=== PATIENT | male | born 1960 | race African-American/Black ===

== ENCOUNTER 2016-03-11 23:59 | Emergency (ER) | payer BC ==
[~2016-03-11] VITALS: Wt 82.0 kg
[~2016-03-11 23:59] MED LIST: AMLO2.5T78 PO; CIPR500T4 PO; CYCL-319 PO; LOSA25TA5 PO; NAPR-260 PO
[2016-03-12] MEDS ORDERED: LOSA25TA5 PO (01:06)
[2016-03-12] MEDS ORDERED: AMLO-145 PO (01:06)
--- NOTE | 2016-03-12 01:13 | ERD ---
ER Documentation Chief Complaint Date/Time DATE: 03/12/16 TIME: 01:11 Chief Complaint headache 3 days. pt wants refill on b/p meds HPI 56-year-old man presents with intermittent headaches with recent elevation in blood pressure. He does have a history of hypertension and ran out of his antihypertensive medications. Patient denies chest pain or shortness of breath , no slurred speech, no weakness in his arms or legs, no neck pain or stiffness. ROS All systems reviewed and are negative except as per history of present illness. Medications Home Meds Active Scripts Amlodipine Besylate* (Amlodipine Besylate*) 5 Mg Tablet, 5 MG PO DAILY, #30 TAB Prov:RAFIQ ABDALLA MD 03/12/16 Losartan Potassium* (Losartan Potassium*) 25 Mg Tablet, 25 MG PO DAILY, #30 TAB Prov:RAFIQ ABDALLA MD 03/12/16 Cyclobenzaprine Hcl* (Cyclobenzaprine Hcl*) 10 Mg Tablet, 10 MG PO TID, #10 TAB Prov:Karyn Collins PA-C 12/16/15 Naproxen* (Naprosyn*) 500 Mg Tablet, 500 MG PO BID Y for PAIN AND/OR INFLAMMATION, #30 TAB Prov:Karyn Collins PA-C 12/16/15 Ciprofloxacin Hcl* (Ciprofloxacin Hcl*) 500 Mg Tablet, 500 MG PO BID for 10 Days , TAB Prov:MANOHAR GASCA PA-C 09/23/15 Amlodipine Besylate* (Amlodipine Besylate*) 2.5 Mg Tablet, 5 MG PO DAILY, #30 TAB Prov:JORDNY COOK MD 05/19/15 Losartan Potassium* (Losartan Potassium*) 25 Mg Tablet, 25 MG PO DAILY, #30 TAB Prov:JORDYN COOK MD 05/19/15 Allergies Allergies: Coded Allergies: No Known Allergy (Unverified , 06/10/15) PMhx/Soc Hypertension History of Surgery: Yes (pacemaker) Anesthesia Reaction: No Hx Neurological Disorder: No Hx Respiratory Disorders: No Hx Cardiac Disorders: Yes (high blood pressure) Hx Psychiatric Problems: No Hx Miscellaneous Medical Probl: Yes (borderline diabetes) Hx Alcohol Use: No Hx Substance Use: No Hx Tobacco Use: No FmHx Family History: No diabetes Physical Exam Vitals Vital Signs Date Time Temp Pulse Resp B/P Pulse Ox O2 Delivery O2 Flow Rate FiO2 03/12/16 00:41 98.3 63 18 126/83 98 Physical Exam GENERAL: Well-developed, well-nourished, well-hydrated, in no apparent distress , looks nontoxic in appearance HEENT: Moist mucous membranes, pink conjunctiva, no cervical spine tenderness or step-off deformities, no goiter, no jaundice or icterus, extraocular movements intact without pain. No submandibular induration, and no pharyngeal erythema NEURO: Alert and oriented 3, cranial nerves II through XII intact bilaterally, pupils equal round reactive to light, no focal deficits or facial asymmetry, sensation intact distally Strength 5/5 in upper and lower extremities bilaterally CARDIAC: Regular rate and rhythm, no murmurs rubs or gallops LUNGS: Clear bilaterally no wheezing crackles or stridor ABDOMEN: Soft nontender, no guarding, no rigidity, no rebound, no psoas sign no obturator sign. Normoactive bowel sounds SKIN: Warm and dry to touch, no abrasions, contusions, or hematomas, no lacerations, no ecchymosis, no target lesions, and without ulcers EXTREMITIES: No clubbing cyanosis or edema, calves are bilaterally symmetrical, no Homans sign, no popliteal cord sign. Distal pulses equal and bilateral PSYCH: Normal affect without agitation or irritability Procedures/MDM Patient has a history of hypertension is here for medication refill. Differential diagnoses considered, included but not limited to acute coronary syndrome, pulmonary embolism, aortic dissection, abdominal aortic aneurysm, sepsis, stroke, meningitis, encephalitis, pneumonia, appendicitis, cholecystitis , bowel obstruction, pyelonephritis, nephrolithiasis, cystitis, as well as metabolic, hematologic, and electrolyte abnormalities. As well as abscess, cellulitis, fractures, and dislocations. Patient feels much better at this time, and vital signs are normal, symptoms have improved. I did give strict instructions to return to the ED if symptoms continue or worsen, patient will otherwise follow-up with primary care physician. Patient understood instructions and agreed to plan. Departure Diagnosis: Primary Impression: Hypertension Hypertension type: essential hypertension Qualified Code: I10 - Essential hypertension Additional Impression: Encounter for medication refill Condition: Good Patient Instructions: High Blood Pressure (Hypertension) RAFIQ ABDALLA MD Mar 12, 2016 01:13
== END 2016-03-12 01:20 | disposition home or self-care (01) ==
LOC: FTE 23:59 → E/R 03-12 01:20
DX: I10 Essential (primary) hypertension (principal); Z76.0 Encounter for issue of repeat prescription; Z95.0 Presence of cardiac pacemaker
CPT/HCPCS: 99281

== ENCOUNTER 2016-03-14 19:57 | Emergency (ER) | payer BC ==
[~2016-03-14] VITALS: Ht 175.3 cm; Wt 90.5 kg
[~2016-03-14 19:57] MED LIST changes: +AMLO-145 PO
[2016-03-14 20:00] VITALS: Ht 175.3 cm; Wt 90.5 kg
[2016-03-14] MEDS ORDERED: ACET500C5 PO (20:56)
--- NOTE | 2016-03-14 21:01 | ERD ---
ER Documentation Chief Complaint Date/Time DATE: 03/14/16 TIME: 20:57 Chief Complaint W[employer]ING [employer], STATES "MY BLOOD PRESSURE IS HIGH." REQUESTING LABS HPI 56-year-old male with history of hypertension is complaining of uncontrolled hypertension and headaches. Patient stated that he is prescribed losartan and amlodipine by his PCP. His blood pressure normally under control. For last 2 weeks, his blood pressure has been high in the 160/110 range. Also in the last 2 weeks, he started having intermittent headaches. He wants to get lab work done. Denies chest pain or shortness of breath. Denies blurry vision. Denies one-sided weakness or paresthesia. ROS All systems reviewed and are negative except as per history of present illness. Medications Home Meds Active Scripts Acetaminophen* (Tylophen*) 500 Mg Capsule, 1 CAP PO Q6H Y for PAIN AND OR ELEVATED TEMP, #20 CAP Prov:JEISON SWEENEY [employer] 03/14/16 Amlodipine Besylate* (Amlodipine Besylate*) 5 Mg Tablet, 5 MG PO DAILY, #30 TAB Prov:RAFIQ ABDALLA MD 03/12/16 Losartan Potassium* (Losartan Potassium*) 25 Mg Tablet, 25 MG PO DAILY, #30 TAB Prov:RAFIQ ABDALLA MD 03/12/16 Cyclobenzaprine Hcl* (Cyclobenzaprine Hcl*) 10 Mg Tablet, 10 MG PO TID, #10 TAB Prov:Karyn CollinsC 12/16/15 Naproxen* (Naprosyn*) 500 Mg Tablet, 500 MG PO BID Y for PAIN AND/OR INFLAMMATION, #30 TAB Prov:Karyn Collins PA-C 12/16/15 Ciprofloxacin Hcl* (Ciprofloxacin Hcl*) 500 Mg Tablet, 500 MG PO BID for 10 Days , TAB Prov:MANOHAR GASCAC 09/23/15 Amlodipine Besylate* (Amlodipine Besylate*) 2.5 Mg Tablet, 5 MG PO DAILY, #30 TAB Prov:JORDYN COOK MD 05/19/15 Losartan Potassium* (Losartan Potassium*) 25 Mg Tablet, 25 MG PO DAILY, #30 TAB Prov:JORDYN COOK MD 05/19/15 Allergies Allergies: Coded Allergies: No Known Allergy (Unverified , 06/10/15) PMhx/Soc History of Surgery: Yes (pacemaker) Anesthesia Reaction: No Hx Neurological Disorder: No Hx Respiratory Disorders: No Hx Cardiac Disorders: Yes (high blood pressure) Hx Psychiatric Problems: No Hx Miscellaneous Medical Probl: Yes (borderline diabetes) Hx Alcohol Use: No Hx Substance Use: No Hx Tobacco Use: No Physical Exam Vitals Vital Signs Date Time Temp Pulse Resp B/P Pulse Ox O2 Delivery O2 Flow Rate FiO2 03/14/16 20:00 97.3 75 18 163/103 99 Physical Exam General impression: Well-developed, well-nourished, 56-year-old male, alert, oriented, in no acute distress Head: Normocephalic, atraumatic. Eyes: PERRL, EOM normal. Conjunctiva not injected. Neck: Supple, nontender. No lymphanopathy. No nuchal rigidity. Respiration: Normal respiratory effort. Lungs clear to auscultate bilaterally. No wheezes, rales or rhonchi. Cardiovascular: Regular rate and rhythm. No murmurs or extra heart sounds. Neuro: Mental status normal. Speech stuttering. Skin: Normal turgor. No rash or lesions. Psych: Normal mood and affect. Procedures/MDM Well-appearing 56-year-old male with history of hypertension present ED requesting lab testing for his hypertension. His blood pressure today is 163/ 103. Although his blood pressure is not in control, it is not considered hypertensive crisis or urgency. Likely his headache is from tension type, low suspicion for intracranial hemorrhage or mass, low suspicion for stroke. Patient does not have any chest pain, low suspicion for acute coronary syndrome. Patient appears well, stable for discharge and outpatient management. Medical decision making shared with patient and family. Education provided to patient and family. Patient and family expressed understanding of the plan. Medications on discharge: Tylenol. Follow-up: Primary care provider in 2-3 days or return to ED if worse. Departure Diagnosis: Primary Impression: Hypertension Hypertension type: unspecified secondary hypertension Qualified Code: I15.9 - Secondary hypertension Condition: Stable Patient Instructions: High Blood Pressure (Hypertension) Referrals: LETICIA THOMAS MD (PCP) [facility] YOU HAVE RECEIVED A MEDICAL SCREENING EXAM AND THE RESULTS INDICATE THAT YOU DO NOT HAVE A CONDITION THAT REQUIRES URGENT TREATMENT IN THE EMERGENCY DEPARTMENT. FURTHER EVALUATION AND TREATMENT OF YOUR CONDITION CAN WAIT UNTIL YOU ARE SEEN IN YOUR DOCTORS OFFICE WITHIN THE NEXT 1-2 DAYS. IT IS YOUR RESPONSIBILITY TO MAKE AN APPOINTMENT FOR FOLOW-UP CARE. IF YOU HAVE A PRIMARY DOCTOR --you should call your primary doctor and schedule an appointment IF YOU DO NOT HAVE A PRIMARY DOCTOR YOU CAN CALL OUR PHYSICIAN REFERRAL HOTLINE AT IF YOU CAN NOT AFFORD TO SEE A PHYSICIAN YOU CAN CHOSE FROM THE FOLLOWING [facility] [address] [facility] [address] [employer] [facility] [address] [facility] [address] [facility] [address] [facility] [facility]. [address] Additional Instructions: Call your primary care doctor TOMORROW for an appointment during the next 2-3 days.See the doctor sooner or return here if your condition worsens before your appointment time. JEISON SWEENEY NP Mar 14, 2016 21:01
== END 2016-03-14 20:55 | disposition home or self-care (01) ==
LOC: E/R 19:57
DX: I15.9 Secondary hypertension, unspecified (principal); I10 Essential (primary) hypertension; Z95.0 Presence of cardiac pacemaker
CPT/HCPCS: 99284